=== PATIENT | female | born 1980 | race Caucasian/White ===

== ENCOUNTER → 2016-11-27 | Outpatient (CLI) | payer BC | END | disposition home or self-care (01) | LOC: LAB.O 10:03 | PROVIDERS: ATTEND Nurse Practitioner Family | DX: E78.5 Hyperlipidemia, unspecified (principal) ==

== ENCOUNTER → 2017-10-19 | Outpatient (CLI) | payer BC | LOC: LAB.O 10:16 | PROVIDERS: ATTEND Nurse Practitioner Family | DX: B39.9 Histoplasmosis, unspecified (principal) ==